=== PATIENT | male | born 1945 | race Caucasian/White ===

== ENCOUNTER → 2020-03-01 10:06 | Outpatient (CLI) | payer MEDICARE, SELFPAY ==
[2020-03-02 04:18] LABS: COVID19 Sendout Not Detected (Not Detect)
== END ==
PROVIDERS: Visit Provider Physician Assistant
DX: Z01.812 Encounter for preprocedural laboratory examination (principal)
CPT/HCPCS: 87635

== ENCOUNTER 2020-03-04 14:21 | Observation (INO) | payer MEDICARE, SELFPAY ==
[2020-03-02 11:05] VITALS: BMI 26.6
[2020-03-03] VITALS (14 sets, daily range): BP systolic 118–143; BP diastolic 55–91; PULSE 70–90; RESP 10–20; TEMP 36.6–37.4; O2SAT 86–99; BMI 26.6
--- NOTE | 2020-03-03 | DI.RAD.S_ITS ---
PROCEDURE: XR LUMBAR SPINE 2-3V INDICATIONS: L4-5 TLIF TECHNIQUE: 2 views of the lumbar spine were acquired. COMPARISON: None. FINDINGS: Spot fluoroscopic intraoperative images demonstrating paraspinal juan luis and pedicle screw fixation L4-L5, and interbody cage graft. There is expected intraoperative alignment. Severe narrowing of the L3-L4 disc space. Trace residual grade 1 anterolisthesis of L4 on L5 and L3 on L4. Dictated by: Kevin Manzo M.D. on 03/03/2020 at 14:03 Approved by: Kevin Manzo M.D. on 03/03/2020 at 14:05
[2020-03-03] MEDS: LACTATED RINGERS 1,000 ML 42 ML IV ×2 (09:19→11:06)
[2020-03-03] MEDS: GABAPENTIN 300 MG CAPSULE PO ×3 (09:22→20:59)
[2020-03-03] MEDS: ACETAMINOPHEN 325 MG TABLET 975 MG PO (09:33)
--- NOTE | 2020-03-03 09:40 | PM.PREOP ---
Pre-operative Note COVID-19 COVID-19 status: Negative Result date/Date tested (Pos, Neg/Pending): 03/01/20 Interval Note History & Physical reviewed/Exam performed by Physician: Yes Changes to H&P: No
--- NOTE | 2020-03-03 09:44 | P.OP_ITS ---
Operative Date/Time/Diagnoses Date of procedure: 03/03/20 Time of procedure: 12:50 Pre-op diagnosis: Lumbar stenosis with radiculopathy Lumbar spondylolisthesis Post-op diagnosis: same Procedure & Clinicians Procedure: L4-5 laminectomy L4-5 TLIF (posterior/posterior interbody fusion) with cage L4-5 screws Iliac crest bone graft aspirate Use of microscope Placement of epidural catheter Same procedure as scheduled: Yes Indications: [age] year old male with intractable pain from stenosis. He had failed conservative management and requested operative intervention. Risks and benefits of surgery were discussed and appropriate consents were obtained. Surgeon: Basim Baumann [employer] Gauger: Alvaro Santamaria Anesthesia Type: General Operative Notes Findings: None Closure Type: primary Specimen(s): none sent Prosthetic devices, grafts, tissues, transplants, or devices: NuVasive MAS reline screws Globus Rise cage Applied: catheter Estimated Blood Loss (mL): 20 Blood products transfused: none Procedure in detail: The patient was brought to the operating room and intubated on the table. A time-out was performed. They were then rolled over to the well- padded Carlos table in the prone position. Preoperative antibiotics were given. The back was prepped and draped in the standard sterile fashion. Using fluoroscopy, a 4 cm longitudinal incision was made to the well-marked r ight of the midline. We used Bovie to come down to and split the lumbodorsal fascia. Using fluoroscopy and monitoring, we then percutaneously placed Jamshidi needles down the pedicles of L4 and L5 on the right side. These were changed out to guidewires and then we tapped and then placed the NuVasive MAS Reline screw shanks. We then opened up the retractors and used Bovie to clear up the posterolateral gutter as well as medially along the lamina to the spinous processes. A bur was used to decorticate the transverse processes. We brought in the microscope. Using a combination of bur and Kerrison rongeurs, a laminectomy was performed from the right side at L4-5. We cleared over past the midline and carefully depressed the dura until we were able to decompress the opposite side. We cleared out the neural foramen. This completed the laminectomy at L4-5. This was separate and distinct from the TLIF approach as we were decompressing the entire severely stenotic central canal, which was much more dissection and exposure compared to a minimal posterior interbody approach. We then began the TLIF prep. A complete facetectomy was performed on this side at L4-5. We carefully cleaned up the remainder of the foramen until we could easily retract the exiting root as well as clearing medially below the dura and expose the disc space. The disc was prepped with bipolar and then an annulotomy was performed. We performed a diskectomy using a combination of paddles, bailee, pituitaries, and curettes. We distracted the disc using a paddle and locked the retractor in an open position. We then filled the disc space with Osteocel bone graft. We then placed the globus Rise cage under fluoroscopy and then filled this in with more bone graft. The distraction on the retractor was released to compress down. This completed the posterior interbody fusion portion of the TLIF at L4-5. We then placed the screw heads, juan luis, and locked down the set screws. The wound was copiously irrigated. A small stab incision was made over the PSIS. We used a Jamshidi needle to aspirate several mL of bone marrow from the pelvis. This was mixed with the remaining Osteocel and combined with all of the locally harvested bone graft and placed in the posterolateral gutter for the posterior fusion of the TLIF at L4- 5. An epidural catheter was then placed in the spinal canal by carefully depressing the dura and advancing it 6 cm cephalad under the remaining lamina without resistance. The muscle fascia was closed. The catheter was then injected with a solution containing 4 mL of 0.5% Marcaine, 1 mg Stadol, 4 mg Duramorph, and 100 mcg of fentanyl. This was injected without resistance and the catheter was pulled. We then went to the opposite side. Again using fluoroscopy, a 3 cm incision was made and Bovie was used to come down to split the fascia. Using neural monitoring and fluoroscopy, Jamshidi needles were advanced down the pedicles of L4 and L5 on the left side. These were switched over guidewires, tapped, and screws placed. We then placed a juan luis and locked the set screws on this side. The wound was irrigated. The fascia was closed. Vancomycin powder was placed in the wounds. The superficial and skin were closed. A sterile dressing was placed. The patient was then rolled over extubated and brought to recovery room without complications. Complications: none Post-operative Condition: stable Disposition: PACU Plan for aftercare: Admitted the hospital. Anticipate a 2-3 days stay.
[2020-03-03] MEDS: CEFAZOLIN 2 GM/100 ML FROZ.PIGGY IV ×2 (10:04→18:18)
--- NOTE | 2020-03-03 10:50 | SUR.OPER ---
Prone on spine table, head in foam head support, padded chest and pelvic supports, gel pad at knees, lower legs supported by pillows; nipples, genitalia and toes free of pressure, arms secured on foam padded arm boards at <90 degrees abduction. Tape over blanket at thigh secured to table.
--- NOTE | 2020-03-03 10:50 | SUR.OPER ---
Slight resistance noted during ray catheter placement. Gently advanced until clear straw colored urine noted. Blood noticed on ray tubing at urethral meatus by Dr. Baumann when he was placing monitoring electrodes on the patient before operative positioning. No blood in ray bag or line at 1054.
[2020-03-03] MEDS: THROMBIN (RECOMBINANT) 5,000 UNIT VIAL 5000 UNIT TOP (11:04)
[2020-03-03] MEDS: SODIUM CHLORIDE 0.9% 1,000 ML, GENTAMICIN 80 MG IRR (11:05)
[2020-03-03] MEDS: BUPIVACAINE 0.5% (PF) 4 ML, MORPHINE-PF 4 MG, BUTORPHANOL 1 MG, fentaNYL 100 MCG INJ (11:07)
[2020-03-03] MEDS: VANCOMYCIN 1,000 MG VIAL 1000 MG TOP (11:07)
[2020-03-03] MEDS: HYDROMORPHONE 2 MG INJ IV ×8 (12:55→13:30)
[2020-03-03] MEDS: hydrOXYzine pamoate 25 MG CAPSULE PO (13:14)
[2020-03-03] MEDS: LACTATED RINGERS 1,000 ML 125 ML IV ×2 (14:32→22:33)
[2020-03-03] MEDS: CELECOXIB 200 MG CAPSULE 400 MG PO (14:38)
--- NOTE | 2020-03-03 14:51 | PC.NURSE ---
Pt to room 210 via bed from PACU. Pt is awake, alert, and oriented x 3. Able to move all limbs, denies numbness or tingling other than what is chronically noted at his baseline foot neuropathy and 97% on RA. Denies nausea or shortness of breath. States he has some pain at his incision site - (which is CDI) and applied ice pack to incision site to which Pt stated his pain had improved. Pt oriented to room, call light, tv controls, and bed controls. Pt now visiting with Spouse at the bedside and eating a sandwich. Reminded Pt not to get up without staff assistance, no bending, lifting, or twisting, and that he must logroll in and out of bed. SCD's on and running. Bed alarm on for safety. Pt agrees to call for assistance as needed.
--- NOTE | 2020-03-03 14:55 | PT-IP ANOTE ---
Received PT orders and reviewed chart. Met with pt who just returned from the PACU and was still reporting numbness in not his usual distribution, including plantar and dorsal feet and impaired light touch distal LE's. Pt wanted to wait for PT evaluation. Informed pt that PT could see him now or in the morning due to staffing. Pt stated he would rather wait. Will check on pt morning of 03/04.
[2020-03-03] MEDS: HYDROCODONE/ACET 5/325 TABLET 2 TAB PO (18:22)
[2020-03-03] MEDS: SIMVASTATIN 40 MG TABLET PO (20:59)
[2020-03-03] MEDS: DOCUSATE 100 MG CAPSULE PO (20:59)
[2020-03-03] MEDS: SENNOSIDES 8.6 MG TABLET 17.2 MG PO (20:59)
[2020-03-03] MEDS: CELECOXIB 200 MG CAPSULE PO (20:59)
[2020-03-03] MEDS: TAMSULOSIN 0.4 MG CAPSULE PO (20:59)
--- NOTE | 2020-03-03 22:56 | PC.NURSE ---
not oob. q2turn. pain controlled with 2 tabs of norco. cms+. pp++. dressing cdi. cory patent. pt drinking plenty of fluids. safety checks. call light in reach.
[2020-03-04] MEDS: CEFAZOLIN 2 GM/100 ML FROZ.PIGGY IV (02:31)
[2020-03-04] MEDS: diphenhydrAMINE 25 MG TABLET PO (02:41)
[2020-03-04 03:01] VITALS: BP 150/77; PULSE 63; RESP 18; TEMP 36.8; O2SAT 98
[2020-03-04] MEDS: PANTOPRAZOLE 20 MG TABLET PO (06:26)
[2020-03-04 06:30] LABS: Hematocrit 34.4 % (41-53); Hemoglobin 12.1 g/dL (13.5-17.5)
--- NOTE | 2020-03-04 06:57 | PC.NURSE ---
Pt doing well. Reports pain as 2-4 out of 10, not wanting any pain meds yet. Has not been OOB yet. B/L SCDs on throughout shift. Ray patent with clear yellow urine. Cleaned ray site and vinny area this AM from some dried bloody drainage from probably insertion. Reports passing gas this AM. Bowel tones hypoactive. Benadryl given overnight for itchiness throughout body. No red spots, no throat swelling, had not received any med directly previously.
--- NOTE | 2020-03-04 07:47 | PM.PNPO.1 ---
Subjective Subjective Date Patient Seen: 03/04/20 Time Patient Seen: 07:47 Interval history: He is doing well. Pain is about 4/10 at rest, more intense when he rolls around in bed. Legs feel fine. Exam Vital Signs (past 8 hours): - 03/04/20 03:01 Temperature 98.3 F Pulse Rate 63 Respiratory Rate 18 Blood Pressure 150/77 H Pulse Oximetry 98 Oxygen Delivery Method Room Air Oxygen Flow Rate 0 Const Orientation: alert and oriented x3 Back/Spine/Pelvis Other: CDI. 5/5 motor both lower extremities Objective Labs Result Diagrams: 03/04/20 06:13 Labs: Laboratory Results - last 24 hr 03/04/20 06:13 Hgb 12.1 L Hct 34.4 L Assessment & Plan Post-op Postoperative Procedures: Procedures Operation Date: 03/03/20 10:15 Actual Procedures Side Surgeon p L45 laminectomy & instrumentated fusion (TLIF) w. bone graft Basim Baumann MD He is doing very well. We will get him up and mobilize with physical therapy today. Anticipate discharge probably tomorrow. Quality VTE Deep Vein Thrombosis/Pulmonary Embolism Present on Admission: No
[2020-03-04] MEDS: CELECOXIB 200 MG CAPSULE PO ×2 (08:55→20:14)
[2020-03-04] MEDS: HYDROXYCHLOROQUINE 200 MG TABLET PO (08:55)
[2020-03-04] MEDS: GABAPENTIN 300 MG CAPSULE PO ×3 (08:55→20:14)
[2020-03-04] MEDS: FOLIC ACID 1 MG TABLET PO (08:55)
[2020-03-04] MEDS: DOCUSATE 100 MG CAPSULE PO ×2 (08:55→20:14)
--- NOTE | 2020-03-04 10:09 | OT.IP.EVAL ---
Current Diagnoses Spondylolisthesis, lumbar region (03/03/20) Spinal stenosis, lumbar region with neurogenic claudication (03/03/20) Surgery Performed Operation Date: 03/03/20 10:15 Actual Procedures p L45 laminectomy & instrumentated fusion (TLIF) w. 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) Neuropathy (Acute) Rheumatoid arthritis (Acute) Sciatica (Acute) Surgical History (Last Updated 03/02/20 @ 11:17 by Kay Griffith RN) History of vasectomy (Acute) Hx of hernia repair (Acute) Hx of lithotripsy (Acute) Occupational Therapy Inpatient Evaluation/Re-Eval M1 PT/OT-IP Prior Functional Status Start: 03/03/20 14:45 Freq: NEEDED Status: Active Protocol: Document 03/04/20 10:15 AB (Rec: 03/04/20 13:24 AB [id number]) Medical Review Prior Functional Status Medical History Reviewed No Communication able to make needs known Mobility and Gait pt stated that he is independent with all mobilities and ambulation without AD Social History Household Members spouse Living Arrangements House Number of Floors (Floors) One Floor Number of Stairs To Enter/Railing? no steps to enter Home Environment High Toilet,Walk in Shower, Built-In Shower Seat Home Equipment Straight Cane,Hand Held Shower ,Grab Bars In Shower Employment Status Retired M1 PT/OT-IP Prior Functional Status Start: 03/04/20 13:18 Freq: NEEDED Status: Active Protocol: Document 03/04/20 13:18 CGR (Rec: 03/04/20 13:27 CGR [email or web address]) Medical Review Prior Functional Status Medical History Reviewed Yes Communication Pt is an effective verbal communicator. Mobility and Gait Pt was IND in all mobility without AD Activities of Daily Living and IADL's Pt was IND in all ADLs without AD Social History Household Members spouse Living Arrangements House Number of Floors (Floors) One Floor Number of Stairs To Enter/Railing? Pt states his home has no steps throughout. Home Environment High Toilet,Walk in Shower, Built-In Shower Seat Home Equipment Four Wheel Walker,Straight Cane,Mechanic Foreman,Grab Bars In Shower Employment Status Retired Additional Social History Comment Pt is retired from banking. Pt is very active at baseline. M2 OT-IP Current Condition Start: 03/04/20 13:18 Freq: Status: Active Protocol: Document 03/04/20 13:18 CGR (Rec: 03/04/20 13:27 CGR [email or web address]) Occupational Therapy Current Condition Current Condition Evaluation Date 03/04/20 Treatment Diagnosis L4-5 TLIF and Lami Diagnosis Onset Date 03/03/20 Post Operative Precautions Lumbar Precautions Log Roll,No Twisting,Limit Bending,Lifting Restriction of 10 lbs,Gait Belt above Incisional Area M3 OT- IP Subjective and Pain Start: 03/04/20 13:18 Freq: Status: Active Protocol: Document 03/04/20 13:18 CGR (Rec: 03/04/20 13:27 CGR [email or web address]) OT- Subjective Occupational Therapy Visit Type Type Initial Evaluation Visit Start Time 09:31 Visit Stop Time 10:09 Total Visit Minutes 38 OT Pain Assessment Pain When Pain Assessed At Rest Pain Present Pain Present Pain Reported Location lower back Intensity 2 Scale Used Numeric (0 - 10) Management Techniques Modification of Treatment, Timing of Activity with Medications M4 OT- IP ADL's Start: 03/04/20 13:18 Freq: Status: Active Protocol: Document 03/04/20 13:18 CGR (Rec: 03/04/20 13:27 CGR [email or web address]) OT [id number] Comments OT Self-Feeding Comments Not meal time OT ADL-Grooming General Evaluation Grooming Ability Independent Areas Needing Assistance Combing/Brushing Hair,Face Washing Comments OT Grooming Comments standing at sink OT ADL-Oral Care General Eval Oral Care Ability Independent Comments Oral Care Comments standing at sink OT ADL-Dressing General Eval Lower Body Dressing Ability Standby Assistance Areas Needing Assistance Socks Comments OT Dressing Comments Pt is able to bring foot to knee for LB dressing with maintaining back precautions and states no increased pain. OT ADL-Toileting General Evaluation Toileting Ability Independent Devices Toileting Assistive Devices Commode Comments OT Toileting Comments Pt urinated seated on toielt OT ADL-Bathing Comments OT Bathing Comments not performed in this session. M5 OT- IP IADL's Start: 03/04/20 13:18 Freq: Status: Active Protocol: Document 03/04/20 13:18 CGR (Rec: 03/04/20 13:27 CGR [email or web address]) OT-Instrumental Activities of Daily Living Deficits IADL Deficits Identified No Deficits Home Safety Awareness Awareness of Need for Assistance at Home Good Awareness Ability to Problem Solve Emergency Able to Problem Solve Situations Medication Management Medication Management No Deficits Identified Money Management Money Management No Deficits Identified Meal Preparation Meal Preparation No Deficits Identified Hostess Hostess No Deficits Identified M6 OT- IP Functional Cognition Start: 03/04/20 13:18 Freq: Status: Active Protocol: Document 03/04/20 13:18 CGR (Rec: 03/04/20 13:27 CGR [email or web address]) Cognitive Factors Limiting Selfcare Function Cognitive Ability Level of Alertness Alert Patient Orientation Name,Age,Birthday,Month,Date, Year,Day of Week,Place, Situation Attention Span Ability Capable of Focused Attention, Capable of Sustained Attention Ability to Follow Commands Able to Follow Multi-Step Commands Memory Description No Deficits Noted Safety Awareness No Deficits Noted Problem Solving Ability No deficits Noted OT- Vision and Hearing OT- Hearing Assessment OT- Hearing Assessment WFL OT- Vision Assessment Visual Acuity Glasses All The Time Visual Attentiveness WFL Occular Pursuits WFL Visual Convergence WFL Visual Esteban WFL Vision Assessment Comments Pt wears bifocals. M7 OT- IP Mobility and Balance Start: 03/04/20 13:18 Freq: Status: Active Protocol: Document 03/04/20 13:18 CGR (Rec: 03/04/20 13:27 CGR [email or web address]) OT- Bed Mobility Assessment Rolling Type of Rolling Log Rolling,Roll to Left Level of Assistance Standby Assistance Supine to Sit Supine to Sit Assist Standby Assistance Scooting Scooting to Edge of Bed Standby Assistance OT-Transfer Assessment Sit to and From Stand Sit to and from Stand Contact Guard Assistance Transfers Transfer Ability Contact Guard Assistance Technique Transfer Destination Bed,Chair,Toilet Transfer Technique Stand Step Pivot Devices Transfer Assistive Devices Gait Belt,Front Wheeled Walker OT- Gait Assessment Gait Gait Assistance Required: Contact Guard Assist Assistive Devices Assistive Device Gait Belt,Front Wheeled Walker OT- Balance Assessment Sitting Balance and Reactions Static Sitting Balance Ability Good Dynamic Sitting Balance Ability Good M8 OT- IP Objective Assessments Start: 03/04/20 13:18 Freq: Status: Active Protocol: Document 03/04/20 13:18 CGR (Rec: 03/04/20 13:27 CGR [email or web address]) OT Gross Range of Motion Upper Extremity Range of Motion Assessment Within Functional Limits OT Strength Upper Extremity Strength Assessment Within Functional Limits OT- Coordination Assessment Upper Extremity Finger to Nose Test Within Functional Limits Finger Tapping Test Within Functional Limits OT-Muscle Tone Assessment Muscle Tone WNL Yes OT Sensation Assessment Edema Edema Absent M9 OT- IP Assessment and Plan Start: 03/04/20 13:18 Freq: Status: Active Protocol: Document 03/04/20 13:18 CGR (Rec: 03/04/20 13:27 CGR [email or web address]) OT Summary Assessment and Plan Potential Rehabilitation Potential Excellent Analytic Complexity at Evaluation Low Summary OT Impairments Pain,Balance,Bathing,Shower Transfers Progress Towards Goals Progressing Toward Goals Assessment Summary Pt presents as a low complexity evaluation s/p L 4- 5 TLIF and lami. Pt is progressing towards independence and would benefit from one more session for shower. Pt neli safe for discharge home with family support. Pt will benefit from 2ww for home use. Goals Bathing Goal Independent Shower Transfer Goal Independent Days to Meet Goals 1 Frequency of Treatment Frequency Of Treatment Once a Day Treatment Plan OT Treatment Plan ADL Training,Functional Mobility,Patient/Family Education,Discharge Planning Other Treatment Recommendations and Next shower Treatment Focus Discharge Recommendations OT Discharge Recommendations Home with Assistance Home Equipment Needs 2ww Transportation Needs at Discharge Private Vehicle
--- NOTE | 2020-03-04 10:15 | PT.IIE ---
Current Diagnoses Spondylolisthesis, lumbar region (03/03/20) Spinal stenosis, lumbar region with neurogenic claudication (03/03/20) Surgery Performed Operation Date: 03/03/20 10:15 Actual Procedures p L45 laminectomy & instrumentated fusion (TLIF) w. 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) Neuropathy (Acute) Rheumatoid arthritis (Acute) Sciatica (Acute) Physical Therapy Inpatient Evaluation/Re-Eval M1 PT/OT-IP Prior Functional Status Start: 03/03/20 14:45 Freq: NEEDED Status: Active Protocol: Document 03/04/20 10:15 AB (Rec: 03/04/20 13:24 AB [id number]) Medical Review Prior Functional Status Medical History Reviewed No Communication able to make needs known Mobility and Gait pt stated that he is independent with all mobilities and ambulation without AD Social History Household Members spouse Living Arrangements House Number of Floors (Floors) One Floor Number of Stairs To Enter/Railing? no steps to enter Home Environment High Toilet,Walk in Shower, Built-In Shower Seat Home Equipment Straight Cane,Hand Held Shower ,Grab Bars In Shower Employment Status Retired M2 PT-IP Current Condition Start: 03/03/20 14:45 Freq: NEEDED Status: Active Protocol: Document 03/04/20 10:15 AB (Rec: 03/04/20 13:24 AB [id number]) Physical Therapy Current Condition Current Condition Evaluation Date 03/04/20 Treatment Diagnosis s/p L4-5 TLIF; difficulty in walking Onset Date 03/03/20 Precautions Lumbar Precautions Log Roll,No Twisting,Limit Bending,Lifting Restriction of 10 lbs,Gait Belt above Incisional Area M3 PT-IP Subjective Start: 03/03/20 14:45 Freq: NEEDED Status: Active Protocol: Document 03/04/20 10:15 AB (Rec: 03/04/20 13:24 AB [id number]) Subjective Physical Therapy Visit Type Type Initial Evaluation Visit Start Time 10:15 Visit Stop Time 10:46 Total Visit Minutes 31 Number of FIREARMS INSTRUCTOR Visits 0 Physical Therapy Visit Comments Patient Comments pt agreeable to do PT Therapy Pain Assessment Pain When Pain Assessed At Rest Pain Present Pain Present Pain Reported Location lower back Intensity 2 Scale Used Numeric (0 - 10) Pain Management Techniques Apply Cold,Re-positioning, Timing of Activity with Medications M4 PT-IP Mobility and Gait Start: 03/03/20 14:45 Freq: NEEDED Status: Active Protocol: Document 03/04/20 10:15 AB (Rec: 03/04/20 13:24 AB [id number]) PT-Bed Mobility Assessment Rolling Type of Rolling Log Rolling Level of Assist Standby Assistance Supine to Sit Supine to Sit Standby Assistance Sit to Supine Sit to Supine Standby Assistance PT-Transfer Assessment Sit to and From Stand Sit to and from Stand Standby Assistance,Contact Guard Assistance,1 Person Assistance,Use of Upper Extremities Equipment Transfer Assistive Device Gait Belt,Front Wheeled Walker Orthotic/Prosthetic Devices or Brace: No Transfers Transfer Destination Bed,Chair Transfer Technique ambulated using FWW Transfer Ability Level of Assist Contact Guard Assistance,1 Person Assistance,Use of Upper Extremities Comments Mobility Comments pt sitting on chair and agreeable to do PT. completed sit to stand from chair CGA and ambulated to the bed using FWW CGA. completed supine <> sit SBA with cues for techniques. completed 2 sets and requiring cues with first set but able to complete without cues with 2nd set. completed sit to stand from EOB CGA and ambulated in room ~ 35 ft using FWW SBA to CGA and cues for R quad activation and even steps. pt agreed to sit on chair. positioned on chair. call light and table placed within reach. Gait Assessment Gait Gait Assistance Required: Standby Assistance,Contact Guard Assist,1 Person Assist Distance (Feet) 35 Able to Maintain Weight Bearing Status Yes During Gait Assistive Devices Assistive Device Gait Belt,Front Wheeled Walker Orthotic/Prosthetic Devices or Brace: No Gait Deviations General Gait Pattern Antalgic,Decreased Stride Length,Decreased Feet Clearance Factors Limiting Gait Function Factors Limiting Gait Function Decreased Activity Tolerance, Decreased Strength,Limited Range of Motion,Pain,Poor Balance,Poor Safety Awareness Comments Gait Comments pt ambulated ~ 35 ft using FWW . pt with increase use of UE on FWW for support and slight R knee buckling during end stance requiring cues for stability and quad activation. Pt stated that he has RLE problems that prompted the surgery. pt does not have a FWW to use at home and is not appropriate for a 4WW or SPC use at this time. informed pt regarding options for obtaining a FWW. pt will let PT know if spouse will be able to borrow a FWW for him. PT-Balance Assessment Sitting Balance and Reactions Static Sitting Balance Ability Good Dynamic Sitting Balance Ability Good Standing Balance and Reactions Static Standing Balance Ability Fair Dynamic Standing Balance Ability Fair Device Used FWW M5 PT-IP Objective Assessments Start: 03/03/20 14:45 Freq: NEEDED Status: Active Protocol: Document 03/04/20 10:15 AB (Rec: 03/04/20 13:24 AB [id number]) Orientation Orientation/Cognition Level of Alertness Alert Orientation Name,Age,Place,Situation Language Function Ability No Deficits Noted Safety Awareness Understands Safety Issues Memory Description Short Term Impaired Gross Range of Motion Lower Extremity ROM Assessment Within Functional Limits Strength Lower Extremity Strength Assessment Right Impaired Hip 3+/5 Knee 3+/5 Sensation Assessment Sensation Light Touch Impaired Proprioception (Position) Impaired Sensation Description Numbness,Tingling Comments Sensation Comments c/o numbness/tingling on BLE but Muscle Tone Muscle Tone WNL Yes M6 PT-IP Treatment Start: 03/03/20 14:45 Freq: NEEDED Status: Active Protocol: Document 03/04/20 10:15 AB (Rec: 03/04/20 13:24 AB [id number]) Physical Therapy Treatment Education Education Provided Precautions,Weight Bearing Status,Post-Op Packet,Safety M7 PT-IP Assessment and Plan Start: 03/03/20 14:45 Freq: NEEDED Status: Active Protocol: Document 03/04/20 10:15 AB (Rec: 03/04/20 13:24 AB [id number]) PT Summary Assessment and Plan Potential Rehabilitation Potential Good Status of Condition at Evaluation Stable Summary Impairments Pain,ROM,Strength,Balance,Bed Mobility,Transfers,Gait, Activity Tolerance Assessment Summary pt requiring SBA to CGA with mobility and plans to go home with spouse to assist him. pt will inform PT if spouse will be able to get him a walker. pt may go home when medically stable. Goals Bed Mobility Goal Independent Transfer Goal Independent,Front Wheeled Walker Gait Goal Independent,Front Wheel Walker Gait Distance 150 Days to Meet Goals 5 Frequency of Treatment Frequency Of Treatment Twice a Day Treatment Plan Physical Therapy Treatment Plan Bed Mobility Training,Transfer Training,Gait Training, Therapeutic Exercise,Balance Retraining,Post Op Education, Discharge Planning,Hot or Cold Pack,Neuromuscular Re-ed, Coordination Retraining,Manual Therapy Recommendations To Nursing Amount of Assist Needed 1 Person Assist Discharge Recommendations PT Discharge Recommendations Home with Assistance, Outpatient PT Transportation Needs at Discharge Private Vehicle
[2020-03-04 11:25] VITALS: BP 118/75; PULSE 77; RESP 18; TEMP 37.1; O2SAT 96
[2020-03-04] MEDS: HYDROCODONE/ACET 5/325 TABLET 1 TAB PO (13:30)
--- NOTE | 2020-03-04 14:51 | CM.DANOTE ---
Patient is a 74 year old male who was admitted on 03/03/20 for Lumbar Surgery. Pt has [facility] for insurance and his PCP is Dr. Basim Hooper. EMR was reviewed. Per Ortho MD, pt tolerated procedure well and to work more with PT/OT today and likely d/c home Thurs if stable. Per PT, recommending safe d/c home with spouse assist and FWW. SW placed FWW order towards PT issuing walker prior to d/c. SW met bedside with pt and explained role and pt confirms he lives at home in [place] with his and is independent with ADL's at baseline and drives. Pt states he uses a cane and will need walker at d/c for safe ambulation. Pt denies any hx of HH or SNF and does not anticipate any SW needs at d/c and states his is his DPOA and he did not bring a copy but has one in his safe deposit box. Pt preference is home via spouse POV tomorrow with walker if stable. Plan: SW to follow for likely d/c home tomorrow via POV and FWW if medically stable. SHANDA Funk Discharge Planning/Care Management Advanced directive, confirm from FAMILY Start: 03/03/20 14:50 Freq: Q24H Status: Active Protocol: Document 03/03/20 14:07 CM (Rec: 03/03/20 14:50 CM [id number]) Advance Directive, confirm on record Time 14:50 Person contacted Pt Copy received No Document 03/03/20 14:50 CM (Rec: 03/03/20 14:51 CM [id number]) Advance Directive, confirm on record Time 14:50 Person contacted Pt Copy received No Time 14:51 Person contacted Spouse Copy received No CM Discharge Assessment Start: 03/04/20 14:49 Freq: Status: Active Protocol: Document 03/04/20 14:49 BF (Rec: 03/04/20 14:51 BF [id number]) Discharge Planning Assessment Assigned Neuropsychiatrist VIDHYA Hou DPOA/Assigned Designee Name Spouse Advance Directives? Yes Advance Directives on File No History Provided By Patient,Family Member,Medical Record Has Patient been admitted in last 30 No days? Prior Living Arrangements House Household Members spouse Type of transporation used prior to Drives own vehicle admit Independent with ADL's Yes Is patient alert and oriented? Yes Caregiver for Another No DME Already Rented / Owned Cane Patient/Family Preference OP PT Therapy Barriers to Discharge No Discharge Plan Home Community Services Physical Therapy Transportation Arrangement Spouse available to provide transport at d/c Referrals Initiated None needed Whiteboard Updated in Patient Room with Yes name and ext. # of Neuropsychiatrist Review Status In Process Please Provide Date Initial DC 03/04/20 Assessment Was Performed Next Review Type Continued Stay Review Pre-Anesthesia Assessment Start: 03/02/20 11:05 Freq: Status: Complete Protocol: Document 03/02/20 11:05 [facility] (Rec: 03/02/20 12:04 [facility] [id number]) Pre-Anesthesia Assessment Preferred Name Rafael Patient Information Reviewed Via Phone Assessment Assessment Completed With Patient Comment Labs/EKG w/PCP 02/26-not here, COVID screen @ 03/01/20 negative Primary Care Provider Basim Hooper Seen Specialist in Last 12 Months Yes Specialist Seen Oncologist,Orthopedist,Other Comment Rheumatology Primary Language Norwegian Gis Mapping Technician Required No Height 167.64 cm Weight 74.843 kg Body Mass Index (BMI) 26.6 Hearing Ability Normal Visual Assist Glasses Dentition Type Teeth, Natural Present Barriers to Learning None Other Aids No Hx Anesthesia Reactions No Hx Family Anesthesia Reaction No Hx Malignant Hyperthermia No Hx Blood Transfusions No Anesthesia Review Requested No alcohol intake current alcohol intake frequency a few times a week Smoking Status Former smoker how long ago did patient quit smoking Quit 1991 Substance Use Type does not use Pain Present Pain Reported Musculoskeletal Symptoms Abnormal Gait,Back Pain, Difficulty Walking,Numbness, Radiating Pain into Limb History of Falling (Recent or History of No ) Patient is completely paralyzed or No completely immobile Mental Status Oriented to own ability Is patient on oxygen? No Does patient have DUMONT/SOB No Hx Sleep Apnea No Currently Taking a Beta Ban No Can You Climb a Flight of Stairs Without Yes SOB Hx Chest Pain No Hx SOB No Hx Syncope or Dizziness No Anti-Coagulant Therapy No Has a Unload Associate No Cardiac Testing No Hx Pacemaker/ICD No Pacemaker Rep Required? No Cardiac Clearance Received Not Applicable Diet Type At Home Regular dysphagia No Gastrointestinal Symptoms Constipation,Reflux Bladder Pattern Incontinent, Stress Urinary Catheter Present No Hx Urinary Self Catheterization No Diabetes No Hx Drug Resistant Organism No Presence of External or Internal Medical No Devices Have you had any close contact with No someone diagnosed with COVID-19? Evaluation/Screening for possible COVID- Yes 19 infection completed? Marital Status Lives With spouse Prior Living Arrangements House Number of Floors (Floors) One Floor Support System Spouse Does the Patient Have Assistance After Yes Surgery Patient Discharge Plan Description Return Home Comment Pt advised 2-3 day length of stay per surgeon Feels Safe in Current Environment Yes Been Physically Hurt or Threatened By a No Person in Current Environment Do you have thoughts of harming yourself None or others? Are you currently considering suicide? No Do you have a plan to hurt yourself or No Plan others? Do You Have Any Spiritual Beliefs That No May Affect Your HC Choices? Do You Have Any Cultural Practices That No May Affect Your HC Choices? Comment Adventism Who Can We Speak to About Patient's Care Family, friends Identifying Code for Release of Patient Declines to issue Information Health Care Proxy/Next of Kin Maia () Health Care Proxy Emergency Contact Name Miaa () Emergency Contact Advance Directives? Yes Power of Joint Cutter Machine No PAC Instructions Durable medical equipment, Medications to take/avoid, Nasal antibiotic,No ETOH/ petroleum product on skin DOS, NPO,Pre-surgical wash,Sensory aids,Sturdy shoes/comfortable clothes,Do not bring valuables and remove jewelry
[2020-03-04 15:25] VITALS: BP 108/64; PULSE 72; RESP 18; TEMP 36.5; O2SAT 98
--- NOTE | 2020-03-04 15:55 | PT.IPTN ---
Current Diagnoses Spondylolisthesis, lumbar region (03/04/20) Spinal stenosis, lumbar region with neurogenic claudication (03/04/20) Surgery Performed Operation Date: 03/03/20 10:15 Actual Procedures p L45 laminectomy & instrumentated fusion (TLIF) w. bone graft - Basim Baumann MD Physical Therapy Treatment Note M2 PT-IP Current Condition Start: 03/03/20 14:45 Freq: NEEDED Status: Active Protocol: Document 03/04/20 10:15 AB (Rec: 03/04/20 13:24 AB [id number]) Physical Therapy Current Condition Current Condition Evaluation Date 03/04/20 Treatment Diagnosis s/p L4-5 TLIF; difficulty in walking Onset Date 03/03/20 Precautions Lumbar Precautions Log Roll,No Twisting,Limit Bending,Lifting Restriction of 10 lbs,Gait Belt above Incisional Area M3 PT-IP Subjective Start: 03/03/20 14:45 Freq: NEEDED Status: Active Protocol: Document 03/04/20 15:35 SP (Rec: 03/04/20 17:06 SP [id number]) Subjective Physical Therapy Visit Type Type Treatment Note Visit Start Time 15:35 Visit Stop Time 15:55 Total Visit Minutes 20 Number of MANUFACTURING TEACHER Visits 1 Physical Therapy Visit Comments Patient Comments pt agreeable to do PT Patient Goals Go for a walk in hallway. Therapy Pain Assessment Pain When Pain Assessed During Mobility Pain Present Pain Present Pain Reported Location lower back Intensity 4 Scale Used Numeric (0 - 10) Pain Management Techniques Re-positioning,Timing of Activity with Medications M4 PT-IP Mobility and Gait Start: 03/03/20 14:45 Freq: NEEDED Status: Active Protocol: Document 03/04/20 15:35 SP (Rec: 03/04/20 17:06 SP [id number]) PT-Bed Mobility Assessment Rolling Type of Rolling Log Rolling,Bilateral Level of Assist Standby Assistance Supine to Sit Supine to Sit Standby Assistance Sit to Supine Sit to Supine Standby Assistance Scooting Scooting to Edge of Bed Standby Assistance PT-Transfer Assessment Sit to and From Stand Sit to and from Stand Standby Assistance,Use of Upper Extremities Equipment Transfer Assistive Device Gait Belt,Front Wheeled Walker Orthotic/Prosthetic Devices or Brace: No Transfers Transfer Destination Bed,Chair Transfer Technique ambulated using FWW Transfer Ability Level of Assist Standby Assistance,Use of Upper Extremities Comments Mobility Comments Pt was sitting on room bench with when arrived, call light not in reach. Sit to stand using BUE SBA, adjusted FWW height and dispensed to him to take home at [place]. Pt was able to walk further distance into hallway 424 ft (2 laps around nursing station) SBA with improved stride length and foot clearance and decrease UE WB as distance progressed. When returned to room patient was able to ambulate in room with no AD CGA, stable 30 ft with 180 degree turn no LOB. Completed balance activities at R bedside feet together/stagger with head turns/vertical EO then EC. Pt LOB initially EO then able to maintain both foot positions with cuing COG over CARMEN awareness approx 6 sec. Sitting<>R sidelying<> supine with cuing for spinal alignment contact RUE with B knees for improved log roll x2 with improvements demonstrated. Pt walked around bed and back to chair CGA no AD, stable. CAll light and all needs in reach with inroom when left. Gait Assessment Gait Gait Assistance Required: Standby Assistance Distance (Feet) 424 Able to Maintain Weight Bearing Status Yes During Gait Assistive Devices Assistive Device Gait Belt,Front Wheeled Walker Orthotic/Prosthetic Devices or Brace: No Gait Deviations General Gait Pattern Antalgic,Decreased Stride Length,Decreased Feet Clearance Factors Limiting Gait Function Factors Limiting Gait Function Decreased Activity Tolerance, Decreased Strength,Limited Range of Motion,Pain,Poor Balance,Poor Safety Awareness Comments Gait Comments See mobility comments. Stair Climbing Assessment Comments Stair Climbing Comments no stair at home, no need to assess. PT-Balance Assessment Sitting Balance and Reactions Static Sitting Balance Ability Good Dynamic Sitting Balance Ability Good Standing Balance and Reactions Static Standing Balance Ability Fair Dynamic Standing Balance Ability Fair Device Used FWW Comments Other Balance Tests/Deviations/Treatment See mobility comments for : standing assess activities. M5 PT-IP Objective Assessments Start: 03/03/20 14:45 Freq: NEEDED Status: Active Protocol: Document 03/04/20 10:15 AB (Rec: 03/04/20 13:24 AB [id number]) Orientation Orientation/Cognition Level of Alertness Alert Orientation Name,Age,Place,Situation Language Function Ability No Deficits Noted Safety Awareness Understands Safety Issues Memory Description Short Term Impaired Gross Range of Motion Lower Extremity ROM Assessment Within Functional Limits Strength Lower Extremity Strength Assessment Right Impaired Hip 3+/5 Knee 3+/5 Sensation Assessment Sensation Light Touch Impaired Proprioception (Position) Impaired Sensation Description Numbness,Tingling Comments Sensation Comments c/o numbness/tingling on BLE but Muscle Tone Muscle Tone WNL Yes M6 PT-IP Treatment Start: 03/03/20 14:45 Freq: NEEDED Status: Active Protocol: Document 03/04/20 15:35 SP (Rec: 03/04/20 17:06 SP [id number]) Physical Therapy Treatment Education Education Provided Precautions,Weight Bearing Status,Post-Op Packet,Safety M7 PT-IP Assessment and Plan Start: 03/03/20 14:45 Freq: NEEDED Status: Active Protocol: Document 03/04/20 15:35 SP (Rec: 03/04/20 17:06 SP [id number]) PT Summary Assessment and Plan Potential Rehabilitation Potential Good Status of Condition at Evaluation Stable Summary Impairments Pain,ROM,Strength,Balance,Bed Mobility,Transfers,Gait, Activity Tolerance Assessment Summary pt requiring SBA with FWW, CGA with no AD during mobility and plans to go home with spouse to assist him. MANUFACTURING TEACHER dispensed a FWW for home today . pt may go home when medically stable. Goals Bed Mobility Goal Independent Transfer Goal Independent,Front Wheeled Walker Gait Goal Independent,Front Wheel Walker Gait Distance 150 Days to Meet Goals 5 Frequency of Treatment Frequency Of Treatment Twice a Day Treatment Plan Physical Therapy Treatment Plan Bed Mobility Training,Transfer Training,Gait Training, Therapeutic Exercise,Balance Retraining,Post Op Education, Discharge Planning,Hot or Cold Pack,Neuromuscular Re-ed, Coordination Retraining,Manual Therapy Recommendations To Nursing Amount of Assist Needed Standby Assistance Discharge Recommendations PT Discharge Recommendations Home with Assistance, Outpatient PT Transportation Needs at Discharge Private Vehicle
[2020-03-04 20:11] VITALS: BP 126/79; PULSE 65; RESP 18; TEMP 36.6; O2SAT 95
[2020-03-04] MEDS: SENNOSIDES 8.6 MG TABLET 17.2 MG PO (20:14)
[2020-03-04] MEDS: SIMVASTATIN 40 MG TABLET PO (20:14)
[2020-03-04] MEDS: TAMSULOSIN 0.4 MG CAPSULE PO (20:14)
[2020-03-04] MEDS: SODIUM CHLORIDE 0.9% FLUSH 10 ML IV (21:01)
[2020-03-04 23:20] VITALS: BP 115/77; PULSE 81; RESP 18; TEMP 36.9; O2SAT 97
[2020-03-04] MEDS: ACETAMINOPHEN 325 MG TABLET 650 MG PO (23:25)
[2020-03-05] MEDS: PANTOPRAZOLE 20 MG TABLET PO (05:09)
[2020-03-05 05:56] VITALS: BP 133/68; PULSE 67; RESP 18; TEMP 36.6; O2SAT 98
--- NOTE | 2020-03-05 06:05 | PC.NURSE ---
Pt doing really well. SBA with FWW to BR minimal pain. Received tylenol overnight with good effect Voiding well.
--- NOTE | 2020-03-05 07:27 | PM.PNPO.1 ---
Subjective Subjective Date Patient Seen: 03/05/20 Time Patient Seen: 07:27 Interval history: He is doing great. Pain is about 3 to 4/10. All across the lower back. Legs are fine. He is up and walking independently. Exam Vital Signs (past 8 hours): - 03/05/20 05:56 Temperature 97.8 F Pulse Rate 67 Respiratory Rate 18 Blood Pressure 133/68 Pulse Oximetry 98 Oxygen Delivery Method Room Air Oxygen Flow Rate 0 Const Orientation: alert and oriented x3 Back/Spine/Pelvis Other: CDI. 5/5 motor both lower extremities. Objective Labs Result Diagrams: 03/04/20 06:13 Assessment & Plan Post-op Postoperative Procedures: Procedures Operation Date: 03/03/20 10:15 Actual Procedures Side Surgeon p L45 laminectomy & instrumentated fusion (TLIF) w. bone graft Basim Baumann MD He is doing great. Discharge home today. Quality VTE Deep Vein Thrombosis/Pulmonary Embolism Present on Admission: No
[2020-03-05 08:00] VITALS: BP 111/49; PULSE 70; RESP 16; TEMP 37; O2SAT 99
[2020-03-05] MEDS: CELECOXIB 200 MG CAPSULE PO (08:03)
[2020-03-05] MEDS: FOLIC ACID 1 MG TABLET PO (08:03)
[2020-03-05] MEDS: GABAPENTIN 300 MG CAPSULE PO (08:03)
[2020-03-05] MEDS: DOCUSATE 100 MG CAPSULE PO (08:03)
[2020-03-05] MEDS: HYDROXYCHLOROQUINE 200 MG TABLET PO (08:03)
--- NOTE | 2020-03-05 09:29 | PT.IPTN ---
Current Diagnoses Spondylolisthesis, lumbar region (03/04/20) Spinal stenosis, lumbar region with neurogenic claudication (03/04/20) Surgery Performed Operation Date: 03/03/20 10:15 Actual Procedures p L45 laminectomy & instrumentated fusion (TLIF) w. bone graft - Basim Baumann MD Physical Therapy Treatment Note M2 PT-IP Current Condition Start: 03/03/20 14:45 Freq: NEEDED Status: Active Protocol: Document 03/04/20 10:15 AB (Rec: 03/04/20 13:24 AB [id number]) Physical Therapy Current Condition Current Condition Evaluation Date 03/04/20 Treatment Diagnosis s/p L4-5 TLIF; difficulty in walking Onset Date 03/03/20 Precautions Lumbar Precautions Log Roll,No Twisting,Limit Bending,Lifting Restriction of 10 lbs,Gait Belt above Incisional Area M3 PT-IP Subjective Start: 03/03/20 14:45 Freq: NEEDED Status: Active Protocol: Document 03/05/20 08:59 SP (Rec: 03/05/20 12:04 SP [email or web address]) Subjective Physical Therapy Visit Type Type Treatment Note Visit Start Time 08:59 Visit Stop Time 09:29 Total Visit Minutes 30 Notes OT in room finishing up treatment when arrived. Number of HEAVY TRUCK DRIVER Visits 2 Physical Therapy Visit Comments Patient Comments Pt agreeable to working with PT. Therapy Pain Assessment Pain When Pain Assessed During Mobility Pain Present Pain Present Pain Reported Location lower back Intensity 4 Scale Used 4-6/10 posterior bottock/upper thigh pain during sit to stand/ gait Pain Management Techniques Apply Cold,Re-positioning, Timing of Activity with Medications M4 PT-IP Mobility and Gait Start: 03/03/20 14:45 Freq: NEEDED Status: Active Protocol: Document 03/05/20 08:59 SP (Rec: 03/05/20 12:04 SP [email or web address]) PT-Bed Mobility Assessment Rolling Type of Rolling Log Rolling,Bilateral Level of Assist Standby Assistance Supine to Sit Supine to Sit Standby Assistance Sit to Supine Sit to Supine Standby Assistance Scooting Scooting to Edge of Bed Standby Assistance PT-Transfer Assessment Sit to and From Stand Sit to and from Stand Standby Assistance,Use of Upper Extremities Equipment Transfer Assistive Device None Orthotic/Prosthetic Devices or Brace: No Transfers Transfer Destination Bed,Chair Transfer Technique ambulated using FWW Transfer Ability Level of Assist Standby Assistance Comments Mobility Comments Pt was up sitting in chair finishing OT treatment when arrived. Sit <> stand usign BUE SBA with cuing for hip hinge to allow wt shift forward ease to stand within spinal precautions. SPT chair to bed then sitting<> supine with good log roll and spinal precautions. Pt was able to walk 2 laps in hallway 424 ft using FWW SBA with improved foot clearance, occasional cued increase stride length. Pt able to walk head turns with no LOB or change in forward movement. Pt was able to sit to stand x5 reps for increased ease of hip hinge to stand end of tx then seated/ stand exercises for strengthening and functional movement assessment before gait. Pt was seated in chair with call light and all needs in reach when left. Pt is able to return home with to assist when medicall stable/ cleared. Gait Assessment Gait Gait Assistance Required: Standby Assistance Distance (Feet) 424 Able to Maintain Weight Bearing Status Yes During Gait Assistive Devices Assistive Device Gait Belt,Front Wheeled Walker Orthotic/Prosthetic Devices or Brace: No Gait Deviations General Gait Pattern Antalgic,Decreased Stride Length Factors Limiting Gait Function Factors Limiting Gait Function Decreased Activity Tolerance, Decreased Strength,Limited Range of Motion,Pain,Poor Balance Comments Gait Comments See mobility comments. Stair Climbing Assessment Comments Stair Climbing Comments no stair at home, no need to assess. PT-Balance Assessment Sitting Balance and Reactions Static Sitting Balance Ability Normal Dynamic Sitting Balance Ability Good Standing Balance and Reactions Static Standing Balance Ability Normal Dynamic Standing Balance Ability Good Device Used FWW Comments Other Balance Tests/Deviations/Treatment See mobility comments.. : M5 PT-IP Objective Assessments Start: 03/03/20 14:45 Freq: NEEDED Status: Active Protocol: Document 03/04/20 10:15 AB (Rec: 03/04/20 13:24 AB [id number]) Orientation Orientation/Cognition Level of Alertness Alert Orientation Name,Age,Place,Situation Language Function Ability No Deficits Noted Safety Awareness Understands Safety Issues Memory Description Short Term Impaired Gross Range of Motion Lower Extremity ROM Assessment Within Functional Limits Strength Lower Extremity Strength Assessment Right Impaired Hip 3+/5 Knee 3+/5 Sensation Assessment Sensation Light Touch Impaired Proprioception (Position) Impaired Sensation Description Numbness,Tingling Comments Sensation Comments c/o numbness/tingling on BLE but Muscle Tone Muscle Tone WNL Yes M6 PT-IP Treatment Start: 03/03/20 14:45 Freq: NEEDED Status: Active Protocol: Document 03/05/20 08:59 SP (Rec: 03/05/20 12:04 SP [email or web address]) Physical Therapy Treatment Education Education Provided Precautions,Weight Bearing Status,Post-Op Packet,Safety M7 PT-IP Assessment and Plan Start: 03/03/20 14:45 Freq: NEEDED Status: Active Protocol: Document 03/05/20 08:59 SP (Rec: 03/05/20 12:04 SP [email or web address]) PT Summary Assessment and Plan Potential Rehabilitation Potential Good Status of Condition at Evaluation Stable Summary Impairments Pain,ROM,Strength,Balance,Bed Mobility,Transfers,Gait, Activity Tolerance Assessment Summary Pt requiring SBA during all mobility including FWW. HEAVY TRUCK DRIVER dispensed a FWW for home. Pt may go home with to assist when medically stable, recommending outpatient therapy secondary patient could beneifit to improve increase strength endurance for functional mobility. Goals Bed Mobility Goal Independent Transfer Goal Independent,Front Wheeled Walker Gait Goal Independent,Front Wheel Walker Gait Distance 150 Days to Meet Goals 5 Frequency of Treatment Frequency Of Treatment Twice a Day Treatment Plan Physical Therapy Treatment Plan Bed Mobility Training,Transfer Training,Gait Training, Therapeutic Exercise,Balance Retraining,Post Op Education, Discharge Planning,Hot or Cold Pack,Neuromuscular Re-ed, Coordination Retraining,Manual Therapy Recommendations To Nursing Amount of Assist Needed Standby Assistance Discharge Recommendations PT Discharge Recommendations Home with Assistance, Outpatient PT Transportation Needs at Discharge Private Vehicle
--- NOTE | 2020-03-05 09:44 | OT.IP.TRT ---
Current Diagnoses Spondylolisthesis, lumbar region (03/04/20) Spinal stenosis, lumbar region with neurogenic claudication (03/04/20) Surgery Performed Operation Date: 03/03/20 10:15 Actual Procedures p L45 laminectomy & instrumentated fusion (TLIF) w. bone graft - Basim Baumann MD Occupational Therapy Treatment Note M2 OT-IP Current Condition Start: 03/04/20 13:18 Freq: Status: Active Protocol: Document 03/04/20 13:18 CGR (Rec: 03/04/20 13:27 CGR [email or web address]) Occupational Therapy Current Condition Current Condition Evaluation Date 03/04/20 Treatment Diagnosis L4-5 TLIF and Lami Diagnosis Onset Date 03/03/20 Post Operative Precautions Lumbar Precautions Log Roll,No Twisting,Limit Bending,Lifting Restriction of 10 lbs,Gait Belt above Incisional Area M3 OT- IP Subjective and Pain Start: 03/04/20 13:18 Freq: Status: Active Protocol: Document 03/05/20 09:37 [facility] (Rec: 03/05/20 09:44 [facility] [id number]) OT- Subjective Occupational Therapy Visit Type Type Treatment Note Visit Start Time 08:41 Visit Stop Time 09:14 Total Visit Minutes 33 Occupational Therapy Visit Comments Patient Comments Pt agreed to shower. Patient/Caregiver Goals TO go home. OT Pain Assessment Pain When Pain Assessed At Rest Pain Present Pain Present Denied Pain M4 OT- IP ADL's Start: 03/04/20 13:18 Freq: Status: Active Protocol: Document 03/05/20 09:37 [facility] (Rec: 03/05/20 09:44 [facility] [id number]) OT ATA-[id number]-[id number] General Evaluation Self-Feeding Ability Independent OT ADL-Grooming General Evaluation Grooming Ability Independent OT ADL-Dressing General Eval Upper Body Dressing Ability Independent Lower Body Dressing Ability Standby Assistance,Moderate Assistance Areas Needing Assistance Underpants/Brief,Pants/Shorts, Socks,Shoes Comments OT Dressing Comments Pt showed sock aid but feels that he is okay or to assist. Pt needing assist to tied his shoes and long handle shoe horn given. Pt already has a showroom sales assistant at home. OT ADL-Toileting General Evaluation Toileting Ability Independent Comments OT Toileting Comments Pt able to stand to wipe so able to adhere to back precautions. OT ADL-Bathing Bathing Type Bathing Type Shower General Evaluation Bathing Ability Minimal Assistance Areas Needing Assistance Wash/Dry Back Comments OT Bathing Comments Pt able to stand for the shower and just needing to sit for drying needs. Pt has a built in shower seat at home to use and can assist as needed. M5 OT- IP IADL's Start: 03/04/20 13:18 Freq: Status: Active Protocol: Document 03/04/20 13:18 CGR (Rec: 03/04/20 13:27 CGR [email or web address]) OT-Instrumental Activities of Daily Living Deficits IADL Deficits Identified No Deficits Home Safety Awareness Awareness of Need for Assistance at Home Good Awareness Ability to Problem Solve Emergency Able to Problem Solve Situations Medication Management Medication Management No Deficits Identified Money Management Money Management No Deficits Identified Meal Preparation Meal Preparation No Deficits Identified Receptionist Scheduler Receptionist Scheduler No Deficits Identified M6 OT- IP Functional Cognition Start: 03/04/20 13:18 Freq: Status: Active Protocol: Document 03/05/20 09:37 [facility] (Rec: 03/05/20 09:44 [facility] [id number]) Cognitive Factors Limiting Selfcare Function Cognitive Comments Cognitive Assessment Comments Pt at baseline and able follow back precautions. Pt needing occasional cues to slow down. M7 OT- IP Mobility and Balance Start: 03/04/20 13:18 Freq: Status: Active Protocol: Document 03/05/20 09:37 [facility] (Rec: 03/05/20 09:44 [facility] [id number]) OT-Transfer Assessment Sit to and From Stand Sit to and from Stand Independent Transfers Transfer Ability Standby Assistance Technique Transfer Destination Chair,Shower Stall,Toilet Devices Transfer Assistive Devices None Comments Mobility Comments SBA and pt able to get around in the room with no device. OT- Balance Assessment Sitting Balance and Reactions Static Sitting Balance Ability Normal Dynamic Sitting Balance Ability Good Standing Balance and Reactions Static Standing Balance Ability Good M8 OT- IP Objective Assessments Start: 03/04/20 13:18 Freq: Status: Active Protocol: Document 03/04/20 13:18 CGR (Rec: 03/04/20 13:27 R [email or web address]) OT Gross Range of Motion Upper Extremity Range of Motion Assessment Within Functional Limits OT Strength Upper Extremity Strength Assessment Within Functional Limits OT- Coordination Assessment Upper Extremity Finger to Nose Test Within Functional Limits Finger Tapping Test Within Functional Limits OT-Muscle Tone Assessment Muscle Tone WNL Yes OT Sensation Assessment Edema Edema Absent M9 OT- IP Assessment and Plan Start: 03/04/20 13:18 Freq: Status: Active Protocol: Document 03/05/20 09:37 [facility] (Rec: 03/05/20 09:44 [facility] [id number]) OT Summary Assessment and Plan Potential Rehabilitation Potential Excellent Analytic Complexity at Evaluation Low Summary OT Impairments Functional Mobility,Dressing Progress Towards Goals Progressing Toward Goals Assessment Summary Pt doing well and able to do showering and aware of assist needed at this time for ADl needs. Pt has a supportive to assist for needs. Pt states does not want to use socks aid and able to comfortably cross his legs for LB dressing needs and able to assist. Pt state to wear sandals versus tie shoes at home. Pt looking to go home today. Goals Patient/Caregiver Education Goal Demonstrate Post-Op Precautions Days to Meet Goals 1 Frequency of Treatment Frequency Of Treatment Once a Day Treatment Plan OT Treatment Plan Patient/Family Education, Discharge Planning Discharge Recommendations OT Discharge Recommendations Home with Assistance Home Equipment Needs FWW Transportation Needs at Discharge Private Vehicle
[2020-03-05 12:00] VITALS: BP 114/61; PULSE 73; RESP 16; TEMP 36.8; O2SAT 98
[2020-03-05] MEDS: ACETAMINOPHEN 325 MG TABLET 650 MG PO (12:09)
--- NOTE | 2020-03-05 12:34 | PC.NURSE ---
Pt is dressed and ready for discharge home with Spouse. Went over d/c instructions with Pt and Spouse-discussed d/c meds, time of last dose, reviewed stroke education, back precautions, reminded Pt to drink plenty of fluids to prevent constipation or dehydration and s/s of infection. Pt already has a follow up appointment and was taken out via w/c by RN to car with Spouse and all belongings.
== END 2020-03-05 12:37 | disposition home or self-care (01) ==
LOC: OR 14:40 → AC 14:40
PROVIDERS: Admitting Provider Orthopaedic Surgery; PCP Family Medicine; Referring Provider Orthopaedic Surgery; Visit Provider Orthopaedic Surgery
PROC: (CPT 22633; principal; 2020-03-03 10:15)
DX: M48.062 Spinal stenosis, lumbar region with neurogenic claudication (principal); M43.16 Spondylolisthesis, lumbar region; M41.9 Scoliosis, unspecified; M06.9 Rheumatoid arthritis, unspecified; K21.9 Gastro-esophageal reflux disease without esophagitis
CPT/HCPCS: 22633; 20939; 22853; 22840; 63047; 36415; 72100; 76000; 85014; 85018; 97116; 97161; 97165; 97530; 97535; C1776; G0378; J0330; J0595; J0690; J1100; J1170; J2274; J2704; J3010